=== PATIENT | male | born 2000 | race African-American/Black ===

== ENCOUNTER 2021-02-22 21:32 | Emergency (ER) | payer SELFPAY ==
[~2021-02-22] VITALS: Ht 188 cm; Wt 86.0 kg
[2021-02-22] MEDS ORDERED: LORAZEPAM 1MG TABLET PO ONE (22:15)
[2021-02-22 23:34] LABS: CLARITY URINE CLEAR (CLEAR); COLOR URINE YELLOW (YELLOW); KETONES URINE TRACE (NEGATIVE); LEUKOCYTE ESTERASE URINE NEGATIVE (NEGATIVE); NITRITE URINE NEGATIVE (NEGATIVE); OCCULT BLOOD URINE NEGATIVE (NEGATIVE); PH URINE 5.5 (4.5-8.0); PROTEIN URINE NEGATIVE (NEGATIVE); SPECIFIC GRAVITY URINE 1.028 (1.005-1.030)
[2021-02-22 23:40] LABS: BASOPHILS % 0.5 % (0.0-2.0); HEMATOCRIT. 44.4 % (42.0-52.0); HEMOGLOBIN. 15.5 g/dL (14.0-18.0); LYMPHOCYTES % 22.4 % (20.0-50.0); MEAN CORPUSCULAR HEMOGLOBIN 28.5 pg (28.0-32.0); MEAN CORPUSCULAR VOLUME 81.7 fL (80.0-94.0); MEAN PLATELET VOLUME 9.5 fl (7.4-10.4); MONOCYTES % 6.8 % (2.0-8.0); NEUTROPHILS % 69.3 % (40.0-76.0); PLATELET 246 x1000/uL (130-400); RED BLOOD CELL COUNT 5.44 mill/uL (4.7-6.1); RED CELL DISTRIBUTION WIDTH 13.5 % (11.6-14.6)
[2021-02-22 23:43] LABS: CHLORIDE 111 mEq/L (98-107)
[2021-02-22 23:47] LABS: ETHANOL BLOOD < 10 mg/dL
[2021-02-23] VITALS: BP 113/67
[2021-02-23 00:19] LABS: *BARBITURATES SCREEN URINE NEGATIVE (NEGATIVE); *BENZODIAZEPINES SCREEN URINE NEGATIVE (NEGATIVE); CANNABINOID URINE SCREEN NEGATIVE (NEGATIVE); METHADONE URINE SCREEN NEGATIVE (NEGATIVE)
[2021-02-23 00:20] LABS: *AMPHETAMINES SCREEN URINE NEGATIVE (NEGATIVE); *COCAINE SCREEN URINE NEGATIVE (NEGATIVE); OPIATES URINE SCREEN NEGATIVE (NEGATIVE); PHENCYCLIDINE URINE SCREEN NEGATIVE (NEGATIVE)
== END 2021-02-23 01:47 | disposition home or self-care (01) ==
LOC: ER 21:32
DX: R53.1 Weakness (principal); R42 Dizziness and giddiness; F12.10 Cannabis abuse, uncomplicated
CPT/HCPCS: 36415; 80053; 80305; 80307; 80320; 80329; 81003; 85025; 99283; G0480

== ENCOUNTER 2024-03-29 02:42 | Emergency (ER) | payer MEDICAID ==
[~2024-03-29] VITALS: Ht 175.3 cm; Wt 87.0 kg
[2024-03-29 03:10] VITALS: O2SAT 100
[2024-03-29] MEDS ORDERED: NAPR-681 PO (04:53)
[2024-03-29] MEDS: METHYLPREDNISOLONE SOD SUCC 125MG/2ML (ACT-O-VIAL) IM STA (05:15)
[2024-03-29] MEDS: PENICILLIN G BENZATHINE 1,200,000 UNITS/2ML SYR IM ONE (05:16)
[2024-03-29] MEDS: KETOROLAC 30MG/ML VIAL IM STA (05:16)
[2024-03-29 05:50] VITALS: BP 124/66; PULSE 60; RESP 16; TEMP 37.11408; O2SAT 98
== END 2024-03-29 05:50 | disposition home or self-care (01) ==
LOC: ER 02:54
DX: J02.9 Acute pharyngitis, unspecified (principal); F12.10 Cannabis abuse, uncomplicated
CPT/HCPCS: 87430; 87070; 96372; 99284; J1885; J2919; J0561; Z7610 ×4